=== PATIENT | female | born 1995 | race African-American/Black ===

== ENCOUNTER 2017-01-19 22:05 | Emergency (ER) | payer OTHER ==
[~2017-01-19] VITALS: Wt 92.1 kg
[~2017-01-19 22:05] MED LIST: AMOXICILLIN; AMOXICILLIN500 MG PO; BACTRIM DS 8001 TA1 PO; CLARITIN10 MG PO; COLACE100 MG PO; CYCLOBENZAPRINE10 MG PO; CYCLOBENZAPRINE5 M3 PO; DEPO PROVER150 MG/M1 IM; DIFLUCAN150 MG PO; FLONASE ALLERG9.9 ML NAS; GAVILAX17 GM/Dose PO; IBUPROFEN600 MG PO; KEFLEX500 MG PO; LIDEX0.05% T; MACROBID100 M1 PO; MEDROL DOSEPAK4 MG PO; MOTRIN600 MG PO; MOTRIN800 MG PO; Motrin,Rufen800 MG PO; NAPROXEN SOD.550 MG PO; NEURONTIN300 MG PO; PAIN RELIEVER650 MG PO; PREDNISONE10 MG PO; PRILOSEC10 MG PO; PYRIDIUM200 M1 PO; PYRIDIUM200 MG PO; RANITIDINE150 MG PO; ROBITUSSIN AC 110 ML PO; VISTARIL25 M2 PO; VOLTAREN50 M1 PO; ZITHROMAX Z PA250 MG PO; ZOFRAN ODT4 MG SL; ZYRTEC10 M3 PO; ZYRTEC10 MG PO; [UNRECOGNIZED DRUG - REMARK]
[2017-01-19 22:36] LABS: BASO # 0.1 10*3/uL (0.0-0.1); BASO % 0.7 % (0.0-1.0); EOS # 0.1 10*3/uL (0.0-0.4); EOS % 1.3 % (1.0-4.0); HEMATOCRIT 37.6 % (37.0-47.0); LYMPH # 3.2 10*3/uL (1.3-4.4); LYMPH % 32.8 % (27.0-41.0); MEAN CELL VOLUME 87.9 fl (81.0-99.0); MEAN CORPUSCULAR HGB CONC 31.9 g/dl (33.0-37.0); MEAN PLATELET VOLUME 8.5 fl (9.6-12.3); MONO % 9.9 % (3.0-9.0); NEUT # 5.4 10*3/uL (2.3-7.9); NEUT % 54.9 % (47.0-73.0); PLATELET COUNT AUTOMATED 433 10*3/uL (130-400); RED BLOOD COUNT 4.28 10*6/uL (4.10-5.10); RED CELL DISTRI WIDTH 13.2 % (0-14.5); WHITE BLOOD COUNT 9.8 10*3/uL (4.8-10.8)
[2017-01-19 22:52] LABS: BUN 8 mg/dl (7-24); CARBON DIOXIDE 26 mmol/L (21-32); CHLORIDE 108 mmol/L (98-107); EST GLOM FILT AFRICAN AMERICAN > 60 ml/min; GLUCOSE 86 mg/dL (65-99); POTASSIUM 3.7 mmol/L (3.5-5.1); SODIUM 140 mmol/L (136-145)
[2017-01-19 22:57] LABS: B-hCG (QUALITATIVE) NEGATIVE (NEGATIVE)
[2017-01-19] MEDS ORDERED: ULTRAM50 MG PO (23:20)
[2017-01-19] MEDS ORDERED: OMNICEF300 MG PO (23:20)
[2017-01-19] MEDS ORDERED: Ventolin 02.5 MG/3 M INH (23:20)
== END 2017-01-19 23:52 | disposition home or self-care (01) ==
LOC: ED 22:05
PROVIDERS: Emergency Medicine Emergency Medical Services
DX: J20.9 Acute bronchitis, unspecified (principal); M94.0 Chondrocostal junction syndrome [Tietze]; I10 Essential (primary) hypertension; Z88.1 Allergy status to other antibiotic agents; Z88.2 Allergy status to sulfonamides

== ENCOUNTER → 2017-03-11 | Outpatient (CLI) | payer OTHER ==
[~2017-03-11] MED LIST changes: +OMNICEF300 MG PO; +ULTRAM50 MG PO; +Ventolin 02.5 MG/3 M INH
[2017-03-11 12:55] LABS: BASO # 0.1 10*3/uL (0.0-0.1); BASO % 0.8 % (0.0-1.0); EOS # 0.1 10*3/uL (0.0-0.4); EOS % 1.7 % (1.0-4.0); HEMATOCRIT 41.3 % (37.0-47.0); HEMOGLOBIN 13.3 g/dl (12.0-16.0); LYMPH # 2.2 10*3/uL (1.3-4.4); LYMPH % 33.6 % (27.0-41.0); MEAN CELL VOLUME 86.2 fl (81.0-99.0); MEAN CORPUSCULAR HGB 27.8 pg (27.0-31.0); MEAN CORPUSCULAR HGB CONC 32.2 g/dl (33.0-37.0); MEAN PLATELET VOLUME 8.4 fl (9.6-12.3); MONO # 0.6 10*3/uL (0.1-1.0); MONO % 9.2 % (3.0-9.0); NEUT # 3.5 10*3/uL (2.3-7.9); NEUT % 54.1 % (47.0-73.0); PLATELET COUNT AUTOMATED 435 10*3/uL (130-400); RED BLOOD COUNT 4.79 10*6/uL (4.10-5.10); RED CELL DISTRI WIDTH 13.3 % (0-14.5); WHITE BLOOD COUNT 6.5 10*3/uL (4.8-10.8)
[2017-03-11 13:16] LABS: ALBUMIN 3.9 gm/dl (3.1-4.5); ALKALINE PHOSPHATASE 64 U/L (45-117); BILIRUBIN, TOTAL 0.7 mg/dl (0.2-1.0); BUN 8 mg/dl (7-24); CARBON DIOXIDE 25 mmol/L (21-32); CHLORIDE 105 mmol/L (98-107); CHOLESTEROL 136 mg/dL (<200); EST GLOM FILT AFRICAN AMERICAN > 60 ml/min; GLUCOSE 76 mg/dL (65-99); HDL CHOLESTEROL 38 mg/dl (40-60); LDL CHOLESTEROL 84 mg/dL (9-159); POTASSIUM 3.9 mmol/L (3.5-5.1); SGOT/AST 11 IU/L (3-35); SGPT/ALT 15 U/L (12-78); SODIUM 140 mmol/L (136-145); TOTAL PROTEIN 7.8 gm/dL (6.4-8.2); TRIGLYCERIDES 68 mg/dl (<150); VLDL CHOLESTEROL 14 mg/dL (6-40)
== END ==
LOC: LAB 12:26
PROVIDERS: Nurse Practitioner Family
DX: E55.9 Vitamin D deficiency, unspecified (principal); K21.9 Gastro-esophageal reflux disease without esophagitis; G43.001 Migraine without aura, not intractable, with status migrainosus; E66.9 Obesity, unspecified

== ENCOUNTER → 2017-04-02 | Outpatient (CLI) | payer OTHER | LOC: US 15:37 | DX: R10.31 Right lower quadrant pain (principal) ==

== ENCOUNTER → 2017-06-17 | Outpatient (CLI) | payer OTHER ==
[2017-06-17 13:35] LABS: BILIRUBIN NEGATIVE (NEGATIVE); BLOOD TRACE-INTACT (NEGATIVE); CLARITY CLEAR (CLEAR); COLOR YELLOW (YELLOW); GLUCOSE NEGATIVE (NEGATIVE); KETONE NEGATIVE (NEGATIVE); LEUKO ESTERASE NEGATIVE (NEGATIVE); NITRITE NEGATIVE (NEGATIVE); UROBILINOGEN 0.2 E.U./dl (0.2-1.0)
[2017-06-17 14:39] LABS: BACTERIA 2+; WBC 0-2 wbc/hpf (0-5)
== END | disposition home or self-care (01) ==
LOC: LAB 13:02
PROVIDERS: Obstetrics & Gynecology
DX: R30.0 Dysuria (principal)

== ENCOUNTER → 2017-06-18 | Outpatient (CLI) | payer OTHER | LOC: CT 06-12 11:00 | DX: K42.9 Umbilical hernia without obstruction or gangrene (principal); N20.0 Calculus of kidney ==

== ENCOUNTER 2017-06-25 13:37 | Emergency (ER) | payer OTHER ==
[~2017-06-25] VITALS: Ht 167.6 cm; Wt 99.8 kg
[2017-06-25 13:43] VITALS: BP 158/82
[2017-06-25] MEDS ORDERED: ANAPROX DS550 MG PO (15:30)
== END 2017-06-25 15:39 | disposition home or self-care (01) ==
LOC: ED 13:37
DX: M94.0 Chondrocostal junction syndrome [Tietze] (principal); M54.6 Pain in thoracic spine; Z98.890 Other specified postprocedural states; Z79.899 Other long term (current) drug therapy; Z88.1 Allergy status to other antibiotic agents; Z88.8 Allergy status to other drugs, medicaments and biological substances

== ENCOUNTER → 2017-07-10 | Outpatient (CLI) | payer OTHER ==
[~2017-07-10] MED LIST changes: +ANAPROX DS550 MG PO
[2017-07-10 14:25] LABS: BASO # 0.1 10*3/uL (0.0-0.1); BASO % 0.9 % (0.0-1.0); EOS # 0.1 10*3/uL (0.0-0.4); EOS % 1.4 % (1.0-4.0); HEMATOCRIT 40.5 % (37.0-47.0); HEMOGLOBIN 13.3 g/dl (12.0-16.0); LYMPH # 2.7 10*3/uL (1.3-4.4); LYMPH % 29.9 % (27.0-41.0); MEAN CELL VOLUME 86.4 fl (81.0-99.0); MEAN CORPUSCULAR HGB 28.4 pg (27.0-31.0); MEAN CORPUSCULAR HGB CONC 32.8 g/dl (33.0-37.0); MEAN PLATELET VOLUME 8.4 fl (9.6-12.3); MONO # 0.8 10*3/uL (0.1-1.0); MONO % 8.4 % (3.0-9.0); NEUT # 5.4 10*3/uL (2.3-7.9); NEUT % 58.6 % (47.0-73.0); PLATELET COUNT AUTOMATED 430 10*3/uL (130-400); RED BLOOD COUNT 4.69 10*6/uL (4.10-5.10); RED CELL DISTRI WIDTH 13.5 % (0-14.5); WHITE BLOOD COUNT 9.2 10*3/uL (4.8-10.8)
[2017-07-10 14:55] LABS: ALKALINE PHOSPHATASE 73 U/L (45-117); BUN 9 mg/dl (7-24); CHLORIDE 106 mmol/L (98-107); POTASSIUM 3.6 mmol/L (3.5-5.1); SGOT/AST 10 IU/L (3-35); SGPT/ALT 15 U/L (12-78); SODIUM 138 mmol/L (136-145); TOTAL PROTEIN 8.3 gm/dL (6.4-8.2)
[2017-07-10 15:01] LABS: THYROID STIM HORMONE (HS) 0.994 uIU/ml (0.358-4.75)
== END | disposition home or self-care (01) ==
LOC: LAB 13:23
PROVIDERS: Nurse Practitioner Family
DX: E66.9 Obesity, unspecified (principal); J20.9 Acute bronchitis, unspecified; R53.83 Other fatigue

== ENCOUNTER 2017-12-03 22:55 | Emergency (ER) | payer OTHER ==
[~2017-12-03] VITALS: Ht 167.6 cm; Wt 99.8 kg
[2017-12-03 23:03] VITALS: BP 116/73
[2017-12-03 23:42] LABS: BILIRUBIN NEGATIVE (NEGATIVE); BLOOD 1+ (NEGATIVE); CLARITY CLOUDY (CLEAR); COLOR YELLOW (YELLOW); GLUCOSE NEGATIVE (NEGATIVE); KETONE NEGATIVE (NEGATIVE); LEUKO ESTERASE 3+ (NEGATIVE); NITRITE POSITIVE (NEGATIVE); PH 6.5 (5.0-9.0)
[2017-12-03 23:48] LABS: BACTERIA 4+; WBC TNTC wbc/hpf (0-5)
[2017-12-03] MEDS ORDERED: PYRIDIUM100 MG PO (23:49)
[2017-12-03] MEDS ORDERED: MACROBID100 M1 PO (23:49)
== END 2017-12-04 00:17 | disposition home or self-care (01) ==
LOC: ED 22:55
PROVIDERS: Physician Assistant
DX: N39.0 Urinary tract infection, site not specified (principal); Z79.899 Other long term (current) drug therapy; Z88.1 Allergy status to other antibiotic agents; Z88.6 Allergy status to analgesic agent; Z88.8 Allergy status to other drugs, medicaments and biological substances

== ENCOUNTER 2018-01-19 08:14 | Emergency (ER) | payer OTHER ==
[~2018-01-19] VITALS: Wt 99.8 kg
[~2018-01-19 08:14] MED LIST changes: +PYRIDIUM100 MG PO
[2018-01-19 08:17] VITALS: BP 140/72
[2018-01-19] MEDS ORDERED: NAPROSYN500 MG PO (08:40)
[2018-01-19] MEDS ORDERED: MACROBID100 M1 PO (08:40)
[2018-01-19 08:42] LABS: BILIRUBIN NEGATIVE (NEGATIVE); BLOOD 3+ (NEGATIVE); CLARITY CLOUDY (CLEAR); GLUCOSE TRACE (NEGATIVE); KETONE TRACE (NEGATIVE); NITRITE POSITIVE (NEGATIVE)
[2018-01-19 08:43] LABS: COLOR ORANGE (YELLOW); LEUKO ESTERASE 3+ (NEGATIVE)
[2018-01-19 08:51] LABS: WBC TNTC wbc/hpf (0-5)
== END 2018-01-19 08:43 | disposition home or self-care (01) ==
LOC: ED 08:14
PROVIDERS: Emergency Medicine
DX: H00.021 Hordeolum internum right upper eyelid (principal); N39.0 Urinary tract infection, site not specified; Z88.1 Allergy status to other antibiotic agents; Z88.8 Allergy status to other drugs, medicaments and biological substances; Z79.899 Other long term (current) drug therapy

== ENCOUNTER 2018-08-10 23:01 | Emergency (ER) | payer OTHER ==
[~2018-08-10] VITALS: Ht 167.6 cm; Wt 99.8 kg
[2018-08-10 23:01] VITALS: BP 111/62
[~2018-08-10 23:01] MED LIST changes: +NAPROSYN500 MG PO
[2018-08-10 23:48] LABS: BILIRUBIN NEGATIVE (NEGATIVE); BLOOD 1+ (NEGATIVE); CLARITY SL CLOUDY (CLEAR); COLOR YELLOW (YELLOW); GLUCOSE NEGATIVE (NEGATIVE); KETONE NEGATIVE (NEGATIVE); LEUKO ESTERASE TRACE (NEGATIVE); NITRITE NEGATIVE (NEGATIVE); SPECIFIC GRAVITY 1.025 (1.005-1.030)
[2018-08-11 00:22] LABS: BACTERIA 4+; EPITHELIAL CELLS 35-40; WBC 16-20 wbc/hpf (0-5)
[2018-08-11] MEDS ORDERED: DIFLUCAN150 MG PO (00:26)
== END 2018-08-11 00:36 | disposition home or self-care (01) ==
LOC: ED 23:01
PROVIDERS: Nurse Practitioner
DX: B37.3 Candidiasis of vulva and vagina (principal); Z88.1 Allergy status to other antibiotic agents; Z88.2 Allergy status to sulfonamides; Z79.899 Other long term (current) drug therapy; Z79.1 Long term (current) use of non-steroidal anti-inflammatories (NSAID); Z79.2 Long term (current) use of antibiotics

== ENCOUNTER → 2018-10-26 | Outpatient (CLI) | payer OTHER ==
[~2018-10-26] MED LIST changes: +DELTASONE20 M1 PO; +GOOD SENSE PAI650 M1 PO; +PHENERGAN25 M3 PO
== END | disposition home or self-care (01) ==
LOC: RAD 12:39
DX: M54.2 Cervicalgia (principal)

== ENCOUNTER → 2018-12-01 | Outpatient (CLI) | payer OTHER | END | disposition home or self-care (01) | LOC: RESCLI 01:57 | DX: Z30.013 Encounter for initial prescription of injectable contraceptive (principal); R21 Rash and other nonspecific skin eruption; J30.2 Other seasonal allergic rhinitis; J45.20 Mild intermittent asthma, uncomplicated; E66.9 Obesity, unspecified; Z79.899 Other long term (current) drug therapy; Z88.8 Allergy status to other drugs, medicaments and biological substances ==

== ENCOUNTER → 2019-02-17 | Outpatient (CLI) | payer OTHER | END | disposition home or self-care (01) | LOC: RESCLI 00:43 | DX: Z30.42 Encounter for surveillance of injectable contraceptive (principal); R21 Rash and other nonspecific skin eruption; J30.2 Other seasonal allergic rhinitis; J45.20 Mild intermittent asthma, uncomplicated; E66.9 Obesity, unspecified ==

== ENCOUNTER → 2019-05-19 | Outpatient (CLI) | payer OTHER | END | disposition home or self-care (01) | LOC: RESCLI 01:07 | DX: Z30.42 Encounter for surveillance of injectable contraceptive (principal); E66.9 Obesity, unspecified; J30.2 Other seasonal allergic rhinitis; J45.20 Mild intermittent asthma, uncomplicated; G62.9 Polyneuropathy, unspecified; K21.9 Gastro-esophageal reflux disease without esophagitis; N32.81 Overactive bladder; Z68.39 Body mass index [BMI] 39.0-39.9, adult; Z79.899 Other long term (current) drug therapy ==

== ENCOUNTER 2019-07-21 16:49 | Emergency (ER) | payer OTHER ==
[~2019-07-21] VITALS: Ht 167.6 cm; Wt 97.5 kg
[2019-07-21 16:50] VITALS: BP 123/75
== END 2019-07-21 18:59 | disposition home or self-care (01) ==
LOC: ED 16:49
DX: B34.9 Viral infection, unspecified (principal); H92.03 Otalgia, bilateral; Z88.1 Allergy status to other antibiotic agents; Z88.2 Allergy status to sulfonamides; Z79.899 Other long term (current) drug therapy; Z79.2 Long term (current) use of antibiotics

== ENCOUNTER → 2019-08-04 | Outpatient (CLI) | payer SELFPAY | END | disposition home or self-care (01) | LOC: RESCLI 00:18 | DX: Z30.42 Encounter for surveillance of injectable contraceptive (principal); K21.9 Gastro-esophageal reflux disease without esophagitis; Z79.899 Other long term (current) drug therapy ==

== ENCOUNTER → 2019-10-20 | Outpatient (CLI) | payer OTHER | END | disposition home or self-care (01) | LOC: RESCLI 08:09 | DX: Z30.42 Encounter for surveillance of injectable contraceptive (principal); K21.9 Gastro-esophageal reflux disease without esophagitis; G62.9 Polyneuropathy, unspecified; Z79.899 Other long term (current) drug therapy ==

== ENCOUNTER → 2022-02-12 | Outpatient (CLI) | payer OTHER ==
[2022-02-12 11:09] LABS: BASO # 0.1 10*3/uL (0.0-0.1); EOS # 0.1 10*3/uL (0.0-0.4); EOS % 1.2 % (1.0-4.0); HEMATOCRIT 42.1 % (37.0-47.0); LYMPH # 2.3 10*3/uL (1.3-4.4); LYMPH % 28.3 % (27.0-41.0); MEAN CELL VOLUME 88.1 fl (81.0-99.0); MEAN CORPUSCULAR HGB 28.7 pg (27.0-31.0); MEAN CORPUSCULAR HGB CONC 32.5 g/dl (33.0-37.0); MONO # 0.5 10*3/uL (0.1-1.0); MONO % 6.7 % (3.0-9.0); NEUT % 62.2 % (47.0-73.0); PLATELET COUNT AUTOMATED 473 10*3/uL (130-400); RED BLOOD COUNT 4.78 10*6/uL (4.10-5.10); RED CELL DISTRI WIDTH 13.4 % (0-14.5); WHITE BLOOD COUNT 8.1 10*3/uL (4.8-10.8)
[2022-02-12 11:41] LABS: BUN 9 mg/dl (7-24); CHLORIDE 113 mmol/L (98-107); CHOLESTEROL 134 mg/dL (<200); POTASSIUM 3.8 mmol/L (3.5-5.1); SODIUM 141 mmol/L (136-145)
[2022-02-12 11:44] LABS: ALKALINE PHOSPHATASE 54 U/L (45-117); LDL CHOLESTEROL 77 mg/dL (9-159); SGOT/AST 9 IU/L (3-35); SGPT/ALT 20 U/L (12-78); TOTAL PROTEIN 7.1 gm/dL (6.4-8.2); TRIGLYCERIDES 127 mg/dl (<150)
== END | disposition home or self-care (01) ==
LOC: LAB 10:48
PROVIDERS: ATTEND Nurse Practitioner Family
DX: Z13.1 Encounter for screening for diabetes mellitus (principal); Z00.00 Encounter for general adult medical examination without abnormal findings; E66.9 Obesity, unspecified; Z13.220 Encounter for screening for lipoid disorders

== ENCOUNTER → 2023-02-14 | Outpatient (CLI) | payer OTHER ==
[2023-02-14 09:01] LABS: BASO # 0.1 10*3/uL (0.0-0.1); BASO % 0.8 % (0.0-1.0); EOS # 0.1 10*3/uL (0.0-0.4); EOS % 1.5 % (1.0-4.0); HEMATOCRIT 45.5 % (37.0-47.0); LYMPH # 2.3 10*3/uL (1.3-4.4); MEAN CELL VOLUME 91.2 fl (81.0-99.0); MEAN CORPUSCULAR HGB 29.1 pg (27.0-31.0); MEAN CORPUSCULAR HGB CONC 31.9 g/dl (33.0-37.0); MEAN PLATELET VOLUME 8.3 fl (9.6-12.3); MONO # 0.5 10*3/uL (0.1-1.0); NEUT # 4.4 10*3/uL (2.3-7.9); NEUT % 59.2 % (47.0-73.0); PLATELET COUNT AUTOMATED 381 10*3/uL (130-400); RED BLOOD COUNT 4.99 10*6/uL (4.10-5.10); RED CELL DISTRI WIDTH 13.9 % (0-14.5); WHITE BLOOD COUNT 7.4 10*3/uL (4.8-10.8)
[2023-02-14 09:39] LABS: ALKALINE PHOSPHATASE 51 U/L (46-116); BUN 7 mg/dl (9-23); CHLORIDE 109 mmol/L (98-107); CHOLESTEROL 128 mg/dL (<200); LDL CHOLESTEROL 78 mg/dL (9-159); POTASSIUM 4.1 mmol/L (3.4-5.1); SGPT/ALT 14 U/L (10-49); THYROID STIM HORMONE (HS) 1.126 uIU/ml (0.550-4.780); TOTAL PROTEIN 7.6 gm/dL (6.0-8.0); TRIGLYCERIDES 67 mg/dl (<150)
[2023-02-14 16:39] LABS: BILIRUBIN Negative (Negative); BLOOD Trace-Lysed (Negative); CLARITY Cloudy (Clear); COLOR Yellow (Yellow); GLUCOSE Negative (Negative); KETONE Negative (Negative); LEUKO ESTERASE Negative (Negative); NITRITE Negative (Negative)
[2023-02-14 16:49] LABS: BACTERIA 1+; CALCIUM OXALATE CRYSTALS 1+; WBC 0-2 wbc/hpf (0-5)
== END | disposition home or self-care (01) ==
LOC: LAB 08:21
PROVIDERS: ATTEND Nurse Practitioner Family
DX: J30.2 Other seasonal allergic rhinitis (principal); R31.9 Hematuria, unspecified; J45.20 Mild intermittent asthma, uncomplicated; E66.9 Obesity, unspecified; G62.9 Polyneuropathy, unspecified

== ENCOUNTER → 2024-02-04 | Outpatient (CLI) | payer OTHER ==
[~2024-02-04] MED LIST changes: +AMOXICILLIN875 MG PO
[2024-02-04 14:04] LABS: BASO # 0.1 10*3/uL (0.0-0.1); BASO % 1.1 % (0.0-1.0); EOS # 0.1 10*3/uL (0.0-0.4); EOS % 1.2 % (1.0-4.0); HEMATOCRIT 41.6 % (37.0-47.0); LYMPH # 2.7 10*3/uL (1.3-4.4); MEAN CELL VOLUME 90.8 fl (81.0-99.0); MEAN CORPUSCULAR HGB 28.8 pg (27.0-31.0); MEAN CORPUSCULAR HGB CONC 31.7 g/dl (33.0-37.0); MONO # 0.6 10*3/uL (0.1-1.0); MONO % 9.4 % (3.0-9.0); NEUT # 3.1 10*3/uL (2.3-7.9); PLATELET COUNT AUTOMATED 418 10*3/uL (130-400); RED BLOOD COUNT 4.58 10*6/uL (4.10-5.10); RED CELL DISTRI WIDTH 13.3 % (0-14.5); WHITE BLOOD COUNT 6.5 10*3/uL (4.8-10.8)
[2024-02-04 14:40] LABS: ALKALINE PHOSPHATASE 49 U/L (46-116); BUN 9 mg/dl (9-23); CHLORIDE 110 mmol/L (98-107); CHOLESTEROL 139 mg/dL (<200); LDL CHOLESTEROL 88 mg/dL (9-159); POTASSIUM 3.7 mmol/L (3.4-5.1); SGPT/ALT 11 U/L (5-49); TOTAL PROTEIN 7.3 gm/dL (6.0-8.0); TRIGLYCERIDES 64 mg/dl (<150)
== END | disposition home or self-care (01) ==
LOC: LAB 13:51
PROVIDERS: ATTEND Nurse Practitioner Family
DX: Z00.00 Encounter for general adult medical examination without abnormal findings (principal)

== ENCOUNTER 2025-08-10 19:12 | Emergency (ER) | payer OTHER ==
[~2025-08-10] VITALS: Ht 170.1 cm; Wt 99.8 kg
[2025-08-10 19:24] VITALS: BP 123/68
== END 2025-08-10 21:05 | disposition home or self-care (01) ==
LOC: ED 19:12
DX: G89.29 Other chronic pain (principal); M54.6 Pain in thoracic spine; Z88.1 Allergy status to other antibiotic agents; Z88.2 Allergy status to sulfonamides; Z79.899 Other long term (current) drug therapy; X50.1XXA Overexertion from prolonged static or awkward postures, initial encounter; Y93.67 Activity, basketball; Y92.89 Other specified places as the place of occurrence of the external cause; Y99.8 Other external cause status